=== PATIENT | female | born 1980 | race Caucasian/White ===

== ENCOUNTER 2023-04-08 08:49 | Outpatient (OUT) | payer OTHER, SELFPAY ==
[2023-04-08 09:21] LABS: Basophils Absolute Auto 0.1 10^3/uL (0.0-0.1); Eosinophils Absolute Auto 0.3 10^3/uL (0.0-0.7); Eosinophils Percent Auto 4.3 % (0.9-7.0); Hematocrit 39.9 % (36.0-48.0); Hemoglobin 13.6 g/dL (12.0-16.0); Immature Granulocytes Abs Auto 0.01 10^3/uL (0.00-0.03); Immature Granulocytes Pct Auto 0.1 % (0.0-0.5); Lymphocytes Absolute Auto 1.7 10^3/uL (1.2-3.8); Lymphocytes Percent Auto 24.2 % (20.5-60.0); Mean Corpuscular HGB Conc 34.1 g/dL (29.9-35.2); Mean Corpuscular Volume 90.9 fL (81.0-99.0); Mean Platelet Volume 9.4 fL (9.5-13.5); Monocytes Absolute Auto 0.4 10^3/uL (0.3-0.8); Monocytes Percent Auto 5.3 % (1.7-12.0); Neutrophils Absolute Auto 4.6 10^3/uL (1.4-6.5); Neutrophils Percent Auto 65.1 % (43.0-75.0); Platelet Count 255 10^3/uL (150-450); Red Blood Count 4.39 10^6/uL (4.20-5.40); Red Cell Distribution Width 12.8 % (11.0-15.0)
[2023-04-08 09:52] LABS: Alanine Aminotransferase 25 U/L (14-59); Albumin Globulin Ratio 1.4; Albumin Level 3.8 g/dL (3.4-5.0); Alkaline Phosphatase 46 U/L (46-116); Anion Gap 10.5; Aspartate Amino Transferase 15 U/L (15-37); BUN Creatinine Ratio 17.8; Bilirubin Total 0.7 mg/dL (0.2-1.0); Calcium 8.5 mg/dL (8.5-10.1); Chloride 105 mmol/L (98-107); Chol HDL Ratio 2.7; Cholesterol 182 mg/dL (<=200); Estimated GFR (African America >60 (>=60); Estimated GFR (Non-African Ame >60 (>=60); Globulin 2.8 g/dL; Glucose 85 mg/dL (74-106); HDL Cholesterol 67 mg/dL (40-60); Potassium 3.5 mmol/L (3.5-5.1); Sodium 137 mmol/L (136-145); Thyroid Stimulating Hormone 0.674 uIU/mL (0.358-3.740); Total Protein 6.6 g/dL (6.4-8.2); Triglycerides 65 mg/dL (<=150)
[2023-04-08 10:06] LABS: Free T4 1.03 ng/dL (0.76-1.46)
[2023-04-09 06:09] LABS: FSH 8.8 mIU/mL (.); Luteinizing Hormone(LH) 6.6 mIU/mL (.); Progesterone 0.1 ng/mL (.)
[2023-04-11 16:09] LABS: Thyroglobulin Antibody <1.0 IU/mL (0.0-0.9); Thyroid Peroxidase (TPO) Ab 12 IU/mL (0-34)
[2023-04-14 00:07] LABS: Estrogens, Total 304 pg/mL (.)
[2023-04-16 20:07] LABS: Free Testosterone(Direct) 0.8 pg/mL (0.0-4.2); Testosterone 13 ng/dL (4-50)
== END 2023-04-08 08:50 | disposition home or self-care (01) ==
LOC: LAB 08:55
PROVIDERS: PCP Family Medicine; Visit Provider Family Medicine
DX: D50.9 Iron deficiency anemia, unspecified (principal); I27.20 Pulmonary hypertension, unspecified; E04.1 Nontoxic single thyroid nodule; E55.9 Vitamin D deficiency, unspecified; N92.6 Irregular menstruation, unspecified
CPT/HCPCS: 36415; 80053; 80061; 82306; 82670; 82672; 82728; 83001; 83002; 83540; 84144; 84402; 84403; 84439; 84443; 85025

== ENCOUNTER 2025-04-18 11:14 | Outpatient (OUT) | payer BC, SELFPAY ==
--- OUTSIDE RECORDS SUMMARY | 2025-04-18 11:21 | XMS_ITS | Encounter Summary ---
Author Organization [facility] Address [id number] [place] [address] Care Team Providers Care Head Sulfide Operator Name Role Phone DarleneAaron Primary Care Provider [phone] [phone] Encounter Details Date Type Department Care Team (Late st Contact Info) Description 12/31/2021 Orders Only [facility] [address] [phone] External, Scanning Provider Social History Tobacco Use Types Packs/Day Years Used Date Smoking Tobacco: Never Smokeless Tobacco: Never Alcohol Use Standard Drinks/Week Comments No 0 (1 standard drink = 0.6 oz pur e alcohol) Childcare Answer Date Recorded Childcare Unknown 01/03/2019 Employment Answer Date Recorded Employment Unknown 01/03/2019 Purpose - Life Answer Date Recorded Purpose and direction in life Unknown Comments No Sex and Gender Information Value Date Recorded Sex Assigned at Not on file Legal Sex Female 11:28 AM EDT Gender Identity Not on file Sexual Orientation Not on file COVID-19 Exposure Response Date Recorded In the last 10 days, have yo u been in contact with someone who was confirmed or suspected to have Coronavirus/COVID-19? No / Unsure 12/15/2021 1:12 PM EDT documented as of this encounter Plan of Treatment Not on file documented as of this encounter Procedures Procedure Name Priority Date/Time Associated Diagnosis Comments MULTIPLE LABS Routine 10/05/2021 documented in this encounter Results * Multiple labs (10/05/2021) us Scanning Provider External [facility] Final Result MANUALLY TRANSCRIBED RESULTS documented in this encounter Visit Diagnoses Not on filedocumented in this encounter Care Teams Head Sulfide Operator Relationship Specialty Start Date End Date Aaron Colon DO [address] [place] [address] PCP - General Family Medicine 09/03/24 documented as of this encounter
--- OUTSIDE RECORDS SUMMARY | 2025-04-18 11:21 | XMS_ITS | Encounter Summary ---
Author Organization [facility] Address [id number] [place] [address] Care Team Providers Care Environmental Marketer Name Role Phone Aaron Colon DO Primary Care Provider Encounter Details Date Type Department Care Team (Late st Contact Info) Description 09/14/2023 Orders Only [facility] [address] [place] [phone] External, Scanning Provider Social History Tobacco Use [...] on file Sexual Orientation Not on file documented as of this encounter Plan of Treatment Not on file documented as of this encounter Procedures Procedure Name Priority Date/Time Associated Diagnosis Comments MULTIPLE LABS Routine 04/28/2023 3:50 PM EDT documented in this encounter Results * Multiple labs (04/28/2023 3:50 PM EDT) us Scanning Provider External [facility] Final Result MANUALLY TRANSCRIBED RESULTS documented in this encounter Visit Diagnoses Not on filedocumented in this encounter Care Teams Environmental Marketer Relationship Specialty Start Date End Date Aaron Colon DO [address] [place] [address] PCP - General Family Medicine 09/03/24 documented as of this encounter
--- OUTSIDE RECORDS SUMMARY | 2025-04-18 11:21 | XMS_ITS | Encounter Summary ---
Author Organization [facility] Address [address] [place] [address] Care Team Providers Care Manager Of Corporate Name Role Phone Aaron Colon DO Primary Care Provider [phone] [phone] Source Comments In the event this information is protected by the Federal Confidentiality of Alcohol and Drug AbusePatient Records regulations: The Federal rules restrict any use of the information to criminally investigate or prosecute any alcohol or drug abuse patient.[facility] Encounter Details Date Type Department Care Team (Late st Contact Info) Description 10/20/2022 Get Medical Advice Endocrine Surgery [address] [phone] Maryann Blackman MD [address] [place] [address] TSH Social History Tobacco Use Types Packs/Day Years Used Date Smoking Tobacco: Never Smokeless Tobacco: Never Alcohol Use Standard Drinks/Week Comments No 0 (1 standard drink = 0.6 oz pur e alcohol) Area Deprivation Index Answer Date David rded National Score (1-100), lower number is lower ri sk 63 08/21/2022 State Score (1-10), lower number is lower risk N ot on file 08/21/2022 Data from: https://www.neighborhoodatlas.medicine.[facility]/. Last address used for calculation [address] [place] [address] [address] 08/21/2022 Comments No Sex and Gender Information Value Date Recorded Sex Assigned at Female 06/28/2019 8:01 PM EST Legal Sex Female 4:56 PM EDT Gender Identity Female 06/28/2019 8:01 PM EST Sexual Orientation Straight 06/28/2019 8: 01 PM EST documented as of this encounter Plan of Treatment Not on file documented as of this encounter Visit Diagnoses Not on filedocumented in this encounter Care Teams Manager Of Corporate Relationship Specialty Start Date End Date Aaron Colon DO [address] [place] [address] PCP - General Family Medicine 10/18/22 documented as of this encounter
--- OUTSIDE RECORDS SUMMARY | 2025-04-18 11:21 | XMS_ITS | Encounter Summary ---
Author Organization [facility] [employer] [facility] Address [id number] [place] [address] Care Team Providers Care Coin Purse Framer Name Role Phone Aaron Colon DO Primary Care Provider [phone] [phone] Encounter Details Date Type Department Care Team (Late st Contact Info) Description 10/12/2022 Orders Only [facility] [address] [facility] [address] [place] [phone] External, Scanning Provider Social History Tobacco Use [...] Procedure Name Priority Date/Time Associated Diagnosis Comments ECHO COMPLETE WO CONTRAST Routine 10/07/2022 documented in this encounter Results * Echo complete W/O contrast (10/07/2022) Anatomical Region Laterality Modality Chest N/A Ultrasound us Scanning Provider External CV ECHO ORDERABLES Fi nal Result documented in this encounter Visit Diagnoses Not on filedocumented in this encounter Care Teams Coin Purse Framer Relationship Specialty Start Date End Date Aaron Colon DO [address] [place] [address] PCP - General Family Medicine 09/03/24 documented as of this encounter
--- OUTSIDE RECORDS SUMMARY | 2025-04-18 11:21 | XMS_ITS | Encounter Summary ---
Author Organization [facility] Address [address] [place] [address] Care Team Providers Care Seal Extrusion Operator Name Role Phone Aaron Colon DO Primary Care Provider [phone] [phone] Source Comments In the event this information is protected by the Federal Confidentiality of Alcohol and Drug AbusePatient Records regulations: The Federal rules restrict any use of the information to criminally investigate or prosecute any alcohol or drug abuse patient.[facility] Encounter Details Date Type Department Care Team (Latest Contact Info) Description 05/06/2023 Get Medical Advice Endocrine Surgery [address] [id number] Maryann Blackman MD [address] [place] [address] Measurements of last Echo Social History Tobacco Use Types Packs/Day Years [...] N ot on file 08/21/2022 Data from: https://www.neighborhoodatlas.[facility]/. Last address used for calculation [address] [place] [address] [address] 08/21/2022 Comments No Sex and [...] on filedocumented in this encounter Care Teams Seal Extrusion Operator Relationship Specialty Start Date End Date Aaron Colon DO [address] [place] [address] PCP - General Family Medicine 10/18/22 documented as of this encounter
--- OUTSIDE RECORDS SUMMARY | 2025-04-18 11:22 | XMS_ITS | Encounter Summary ---
Author Organization [facility] Address [address] [place] [address] Phone Care Team Providers Care Ecdis N Navigation Operator Name Role Phone Unavailable Primary Care Provider Unavailabl e Encounter Details Date Type Department Care Team (Late st Contact Info) Description 08/10/2024 Scanned Document [facility] [address] [place] [address] Scanning, Generic Provider Social History Tobacco Use Types Packs/Day Years Used Date Smoking Tobacco: Never Assessed Comments Unknown Sex and Gender Information Value Date Recorded Sex Assigned at Not on file Legal Sex Female 5:15 PM EST Gender Identity Not on file Sexual Orientation Not on file documented as of this encounter Plan of Treatment Not on file documented as of this encounter Procedures Procedure Name Priority Date/Time Associated Diagnosis Comments ECHOCARDIOGRAM 08/10/2024 documented in this encounter Results * Echocardiogram (08/10/2024) Narrative 08/10/2024 Ordered by an unspecified provider. us Generic Provider Scanning CV ECHO PROCEDURES Fin al Result documented in this encounter Visit Diagnoses Not on filedocumented in this encounter
--- OUTSIDE RECORDS SUMMARY | 2025-04-18 11:22 | XMS_ITS | Encounter Summary ---
Author Organization [facility] [email or web address] [facility] Address [id number] [place] [address] Care Team Providers Care Felt Strip Finisher Name Role Phone Aaron Colon DO Primary Care Provider [phone] [phone] Encounter Details Date Type Department Care Team (Late st Contact Info) Description 02/26/2025 Results Follow-Up [facility] [address] [phone] Mady Sprague RN Basic Metabolic Panel Social History Tobacco Use Types Packs/Day Years [...] on filedocumented in this encounter Care Teams Felt Strip Finisher Relationship Specialty Start Date End Date Aaron Colon DO [address] [place] [address] PCP - General Family Medicine 09/03/24 documented as of this encounter
--- OUTSIDE RECORDS SUMMARY | 2025-04-18 11:22 | XMS_ITS | Encounter Summary ---
Author Organization [facility] [employer] [facility] Address [id number] [address] [place] [address] Care Team Providers Care Business Intelligence Reporting Analyst Name Role Phone Aaron Colon Primary Care Provider [phone] [phone] Encounter Details Date Type Department Care Team (Late st Contact Info) Description 09/04/2024 Orders Only [facility] [address] [place] [address] External, Scanning Provider Social History Tobacco Use [...] Name Priority Date/Time Associated Diagnosis Comments ECHO DOPPLER Routine 08/10/2024 10:44 AM EST B-TYPE NATRIURETIC PEPTIDE Routine 08/10/2024 10:42 AM EST documented in this encounter Results * Echo Doppler (08/10/2024 10:44 AM EST) Anatomical Region Laterality Modality Chest N/A Ultrasound us Scanning Provider External CV ECHO ORDERABLES Fi nal Result * B-type natriuretic peptide (08/10/2024 10:42 AM EST) us Scanning Provider External LAB BLOOD ORDERABLES Final Result MANUALLY TRANSCRIBED RESULTS documented in this encounter Visit Diagnoses Not on filedocumented in this encounter Care Teams Business Intelligence Reporting Analyst Relationship Specialty Start Date End Date Aaron Colon DO [address] [place] [address] PCP - General Family Medicine 09/03/24 documented as of this encounter
--- OUTSIDE RECORDS SUMMARY | 2025-04-18 11:22 | XMS_ITS | Clinical Summary ---
Author Organization [facility] Address [address] [place] [address] Phone Care Team Providers Care Construction Safety Consultant Name Role Phone Unavailable Primary Care Provider Unavailabl e Social History Tobacco Use Types Packs/Day Years Used Date Smoking Tobacco: Never Assessed Comments Unknown Sex and Gender Information Value Date Recorded Sex Assigned at Not on file Legal Sex Female 5:15 PM EST Gender Identity Not on file Sexual Orientation Not on file Plan of Treatment Health Maintenance Due Date Last Done Comments CT Colonography 1980 Colonoscopy 1980 Colorectal Cancer Screening 1980 FIT-DNA (Cologuard) 1980 FIT 1980 HIV Screening 1980 Lipid Panel 1980 Sigmoidoscopy 1980 Yearly Adult Physical 1980 MMR Vaccines (1 of 1 - Stand pradeep series) 1981 Hepatitis C Screening 1998 Hepatitis B Vaccines (1 of 3 - 19+ 3-dose series) 1999 Pneumococcal Vaccine: Pediat rics and At-Risk Adult Patients (1 of 2 - PCV) 1999 Cervical Cancer Screening 2001 HPV/Cotest 2001 Pap Smear 2001 DTaP/Tdap/Td Vaccines (1 - Tdap) 2002 HPV Vaccines (1 - 3-dose sta ndard series) 2007 Mammogram 2020 COVID-19 Vaccine (1 - 2023-2 5 season) 2025 Influenza Vaccine (#1) 2025 Zoster Vaccines (1 of 2) 2030 HIB Vaccines Aged Out No longer eligi ble based on patient's age to complete this topic Hepatitis A Vaccines Aged Out No long er eligible based on patient's age to complete this topic IPV Vaccines Aged Out No longer eligi ble based on patient's age to complete this topic Meningococcal Vaccine Aged Out No karen new eligible based on patient's age to complete this topic Rotavirus Vaccines Aged Out No longer eligible based on patient's age to complete this topic Insurance
--- OUTSIDE RECORDS SUMMARY | 2025-04-18 11:22 | XMS_ITS | Encounter Summary ---
Author Organization [facility] Address [id number] [address] [place] [address] Care Team Providers Care Apparel Pattern Maker Name Role Phone Aaron Colon Primary Care Provider Encounter Details Date Type Department Care Team (Late st Contact Info) Description 06/10/2021 Orders Only [facility] [address] [place] [address] External, Scanning Provider Social History Tobacco Use Types Packs/Day Years Used Date Smoking Tobacco: Never Smokeless Tobacco: Never Alcohol Use Standard Drinks/Week Comments No 0 (1 standard drink = 0.6 oz pur e alcohol) Childcare Answer Date Recorded Childcare Unknown 01/03/2019 Employment Answer Date Recorded Employment Unknown 01/03/2019 Purpose - Life Answer Date Recorded Purpose and direction in life Unknown Comments Unknown Sex and Gender Information Value Date Recorded Sex Assigned at Not on file Legal Sex Female 11:28 AM EDT Gender Identity Not on file Sexual Orientation Not on file COVID-19 Exposure Response Date Recorded In the last month, have you been in contact with someone who was confirmed or suspected to have Coronavirus / COVID-19? No / Unsure 06/08/2021 2:03 PM EST documented as of this encounter Plan of Treatment Not on file documented as of this encounter Procedures Procedure Name Priority Date/Time Associated Diagnosis Comments ECHO COMPLETE WO CONTRAST Routine 07/23/2020 documented in this encounter Results * Echo complete W/O contrast (07/23/2020) Anatomical Region Laterality Modality Chest N/A Ultrasound us Scanning Provider External CV ECHO ORDERABLES Fi nal Result documented in this encounter Visit Diagnoses Not on filedocumented in this encounter Additional Health Concerns Infection Onset Date Last Indicated Resolved Time COVID-19 Rule-Out 06/30/2021 06/30/2021 07/01/2021 9:50 PM EST documented as of this encounter Care Teams Apparel Pattern Maker Relationship Specialty Start Date End Date Aaron Colon DO [address] [place] [address] PCP - General Family Medicine 09/03/24 documented as of this encounter
--- OUTSIDE RECORDS SUMMARY | 2025-04-18 11:22 | XMS_ITS | Encounter Summary ---
Author Organization [facility] Address [id number] [place] [address] Care Team Providers Care Patient Accounts Clerk Name Role Phone Aaron Colon Primary Care Provider Encounter Details Date Type Department Care Team (Late st Contact Info) Description 06/09/2021 Orders Only [facility] [address] [place] [phone] External, Scanning Provider Social History Tobacco Use [...] Date/Time Associated Diagnosis Comments ECHO DOPPLER Routine 07/23/2020 H-CARDIAC CATHETERIZATION Routine 05/02/2013 documented in this encounter Results * Echo Doppler (07/23/2020) Anatomical Region Laterality Modality Chest N/A Ultrasound us Scanning Provider External CV ECHO ORDERABLES Fi nal Result * Cardiac catheterization (05/02/2013) Anatomical Region Laterality Modality Other us Scanning Provider External CV CARDIAC CATH ORDER DANYELLE Final Result documented in this encounter Visit Diagnoses Not on filedocumented in this encounter Additional Health Concerns Infection Onset Date Last Indicated Resolved Time COVID-19 Rule-Out 06/30/2021 06/30/2021 07/01/2021 9:50 PM EST documented as of this encounter Care Teams Patient Accounts Clerk Relationship Specialty Start Date End Date Aaron Colon DO [address] [place] [address] PCP - General Family Medicine 09/03/24 documented as of this encounter
--- OUTSIDE RECORDS SUMMARY | 2025-04-18 11:22 | XMS_ITS | Clinical Summary ---
Author Organization [facility] Address [address] [place] [address] Care Team Providers Care Fur Ironer Name Role Phone Aaron Colon DO Primary Care Provider [phone] [phone] Allergies No known active allergies Medications ORENITRAM 5 mg TbER Take 10 mg by mouth three times daily. 06/22/2019 Active ADEMPAS 2.5 mg tablet Take 2.5 mg by mouth three times daily. 06/07/2019 Active bumetanide (BUMEX) 0.5 mg tablet 07/03/2021 Active Active Problems No known active problems Family History Medical History Relation Comments Peripheral vascular disease Father Relation Status Comments Father Social History Tobacco Use Types Packs/Day Years Used Date Smoking Tobacco: Never Smokeless Tobacco: Never Tobacco Cessation:Counseling Given: Not Answered Alcohol Use Standard Drinks/Week Comments No 0 (1 standard drink = 0.6 oz pur e alcohol) Area Deprivation Index Answer Date David rded National Score (1-100), lower number is lower ri sk 64 06/03/2023 State Score (1-10), lower number is lower risk 4 06/03/2023 Data from: https://www.neighborhoodatlas.medicine.[facility].edu/. Last address used for calculation [address] [place] [address] [address] 06/03/2023 Comments No Sex and Gender Information Value Date Recorded Sex Assigned at Female 06/28/2019 8:01 PM EST Legal Sex Female 4:56 PM EDT Gender Identity Female 06/28/2019 8:01 PM EST Sexual Orientation Straight 06/28/2019 8: 01 PM EST Last Filed Vital Signs Vital Sign Reading Time Taken Comments Blood Pressure 130/79 10/18/2022 2:56 PM EDT Pulse 73 10/18/2022 2:56 PM EDT Temperature 37.2 C (98.9 F) 06/14/2014 3:50 PM EST Respiratory Rate 18 06/14/2014 3:50 PM EST Oxygen Saturation 100% 06/14/2014 3:50 PM EST Inhaled Oxygen Concentration - - Weight 78 kg (172 lb) 10/18/2022 2:56 PM EDT Height 173.7 cm (5' 8.39 ) 10/01/2019 12:33 PM E DT Body Mass Index 25.86 10/01/2019 12:33 PM EDT Plan of Treatment Health Maintenance Due Date Last Done Comments Anxiety Screening 1998 Depression Screening 1998 HIV Screening 1998 Hepatitis C Screening 1998 DTaP,Tdap,Td Vaccine (1 - Tdap) 1999 Hepatitis B Vaccine (1 of 3 - 19+ 3-dose series) 1999 Cervical Cancer Screening 2001 HPV Vaccine (1 - 3-dose SCDM series) 2007 Mammogram Screening [address]enza Vaccine (#1) 2025 CT Colonography 2025 Cologuard (FIT-DNA) 2025 Colonoscopy 2025 Colorectal Cancer Screening 2025 Diabetes Screening 2025 07/14/2021, 1 08/27/2020, 06/14/2014 Fecal Occult Blood 2025 Lipid Screening 2025 Sigmoidoscopy 2025 Procedures Procedure Name Priority Date/Time Associated Diagnosis Comments COMPREHENSIVE METABOLIC PANEL Routine 06/14/2014 12:34 PM EST Primary pulmonary hypertension (HCC) from Last 3 Months or Most Recently Relevant to Health Maintenance Results * (ABNORMAL) COMP METABOLIC PANEL (06/14/2014 12:34 PM EST) Protein, Total 6.7 6.0 - 8.4 g/dL [facility] Albumin 4.2 3.5 - 5.0 g/dL [facility] Calcium 9.1 8.5 - 10.5 mg/dL [facility] Bilirubin, Total 0.4 0.0 - 1.5 mg/dL [facility] Alkaline Phosphatase 34(L) 40 - 150 U/L [facility] AST 25 7 - 40 U/L [facility] Glucose 87 65 - 100 mg/dL [facility] BUN 13 8 - 25 mg/dL [facility] Creatinine 0.90 0.70 - 1.40 mg/dL [facility] Sodium 137 132 - 148 mmol/L [facility] Comment:Corrected on 06/14 A T 2043: Previously reported as 130 Potassium 3.9 3.5 - 5.0 mmol/L [facility] Chloride 98 98 - 110 mmol/L [facility] CO2 21(L) 23 - 32 mmol/L [facility] Anion Gap 18(H) 0 - 15 mmol/L [facility] Comment:Corrected on 06/14 A T 2042: Previously reported as 11 ALT 16 0 - 45 U/L [facility] eGFR- >60 [facility] eGFR-All Other Races >60 . [facility] Comment: eGFR (Estimated GFR) Units of measure: mL/min/1.73 meters squared eGFR is derived from the reexpressed MDRD Study equation using the following parameters: serum creatinine, age, gender and race. The creatinine assay has been calibrated to be traceable to IDMS. An eGFR <60 mL/min/1.73m2 for >3 months is consistent with chronic kidney disease. Refer to KDOQI guidelines for clinical interpretation. In patients with unstable renal function, e.g. those with acute kidney injury, the eGFR may not accurately reflect actual GFR. Blood specimen (specimen) BLOOD SPECIMEN / Unknown 06/14/2014 12:34 PM EST 06/14/2014 12:36 PM EST us Deepti Gallo APRN.[employer] [facility] Edited [facility] [address] [place] [address] from Last 3 Months or Most Recently Relevant to Health Maintenance Insurance [address] [place] [address] [facility] Care Teams Fur Ironer Relationship Specialty Start Date End Date Aaron Colon DO [address] [place] [address] PCP - General Family Medicine 10/18/22
--- OUTSIDE RECORDS SUMMARY | 2025-04-18 11:22 | XMS_ITS | Continuity of Care Document ---
Author [facility] Address [address] [place] [address] Problems Unknown Problems Results Test Result Date/Time Value / Unit Interp. Refere nce Range SARS-CoV-2 (COVID-19), RT-PC R/TMA[[id number]] Collected: 06/30/2021 03:07 PM Specimen Received: 07/01/2021 07:42 PM Source: [facility] SARS-CoV-2 INTERPRETATION [[id number]] 07/02/2021 03:56 AM Negative See Note SARS-CoV-2 RNA NOT DETECTEDN egative results do not preclude SARS-CoV-2 infection and should notbe used as the sole basis for patient management decisions. Negativeresults must be combined with clinical observations, patient history,and epidemiological information. Optimum specimen types and timingfor peak viral levels during infections caused by SARS-CoV-2 have notbeen determined. Collection of multiple specimens or types ofspecimens may be necessary to detect virus. Improper specimencollection and handling, sequence variability under primers/probes,or organism present below the limit of detection may lead to falsenegative results. Positive and negative predictive values oftesting are highly dependent on prevalence. False negative testresults are more likely when prevalence is high. SOURCE [[id number]] 07/02/2021 03:56 AM NASOPHARYNGEAL Note: Methodology is Dorothy C yasmine Real-Time RT-PCR. The expected result or reference range is NEGATIVE (Not Detected). For more information regarding COVID-19 testing to include clinicalinformation, methodology detail, intended use, FDA authorization andrecommended fact sheets for patients or healthcare providers, see [employer]Loop Announcement: SARS-CoV-2 (COVID-19) by NAAT at URL below (note,fact sheets are provided by method given in report:[email or web address]/ Alternatively, see downloadable PDF fact sheet at:[email or web address] Allergies, adverse reactions, alerts No known allergies and adverse reactions Medications No administered medications reported Vital Signs No vital signs reported Social History No smoking Hx information available
--- OUTSIDE RECORDS SUMMARY | 2025-04-18 11:22 | XMS_ITS | Encounter Summary ---
Author Organization [facility] Address [address] [place] [address] Care Team Providers Care Cs Associate Name Role Phone Caitlin Delcid MD Primary Care Provider [phone] Aaron Colon DO Primary Care Provider [phone] Source Comments In the event this information is protected by the Federal Confidentiality of Alcohol and Drug AbusePatient Records regulations: The Federal rules restrict any use of the information to criminally investigate or prosecute any alcohol or drug abuse patient.[facility] Encounter Details Date Type Department Care Team (Late st Contact Info) Description 09/07/2019 Patient Msg Endocrine Surgery [address] [place] [address] Provider, [facility] Assessment Social History Tobacco Use Types Packs/Day Years Used Date Smoking Tobacco: Never Alcohol Use Standard Drinks/Week Comments No 0 (1 standard drink = 0.6 oz pur e alcohol) Comments Unknown Sex and Gender Information Value [...] on filedocumented in this encounter Care Teams Cs Associate Relationship Specialty Start Date End Date Caitlin Delcid MD [address] [place] [address] PCP - General Family Medicine 04/29/14 06/03/22 Aaron Colon DO [address] [place] [address] PCP - General Family Medicine 10/18/22 documented as of this encounter
--- OUTSIDE RECORDS SUMMARY | 2025-04-18 11:22 | XMS_ITS | Clinical Summary ---
Author Organization [employer] [facility] [employer] Address [id number] [address] [place] [address] Care Team Providers Care Machine Bender Name Role Phone DarleneAaron Primary Care Provider Allergies No known active allergies Medications treprostinil diolamine 2.5 mg tablet extended releaseIndicatio ns:pulmonary arterial hypertension Take 10 mg by mouth 3 (three) times a day Indications: Pulmonary Hypertensive Arterial Disease. Active riociguat (ADEMPAS) 2.5 mg tablet tablet Take 1 tablet (2.5 mg total) by mouth 3 (three) times a day. Active bumetanide (BUMEX) 0.5 mg tabletIndication s:Chronic diastolic heart failure ([facility]),Pulmon pavithra arterial hypertension ([facility]) Take 1 tablet (0.5 mg total) by mouth as needed (Daily as needed for weight gain 2lb overnight or 5lb in 1 week). Active Active Problems Problem Noted Date Diagnosed Date Pulmonary arterial hypertension 06/16/2016 CAP (community acquired pneumonia) 06/16/2016 Oral thrush 06/16/2016 Acute on chronic respiratory failure with hypoxi a 06/16/2016 Resolved Problems Problem Noted Date Diagnosed Date Resolved Date Hypoxemia 06/16/2016 06/16/2016 Respiratory failure, [id number] 06/15/2016 06/16/2016 Encounters Date Type Department Care Team Description 02/26/2025 Results Follow-Up [facility] [address] [place] [address] Mady Sprague, RN Basic Metabolic Panel 02/25/2025 Travel from Last 3 Months Family History Medical History Relation Name Comments Hyperlipidemia Father Heart disease Maternal Grandfather Diabetes Mother Hypertension Paternal Grandmother Relation Name Status Comments Father Maternal Grandfather Mother Paternal Grandmother Social History Tobacco Use Types Packs/Day Years [...] on file Sexual Orientation Not on file Last Filed Vital Signs Vital Sign Reading Time Taken Comments Blood Pressure 124/82 09/03/2024 2:54 PM EST Pulse 67 09/03/2024 2:54 PM EST Temperature 36.9 C (98.4 F) 06/18/2016 12:30 PM EST Respiratory Rate 15 07/03/2021 10:3 0 AM EST Oxygen Saturation 100% 09/03/2024 2:54 PM EST Inhaled Oxygen Concentration - - Weight 77.5 kg (170 lb 12.8 oz) 09/03/2024 2:54 PM EST Height 170.2 cm (5' 7.01 ) 09/03/2024 2:54 PM ES T Body Mass Index 26.74 09/03/2024 2:54 PM EST Plan of Treatment Health Maintenance Due Date Last Done Comments Depression Screening 1992 Adult BMI Follow Up Plan 1998 DTaP,Tdap and Td Vaccines (1 - Tdap) 1999 Pap Smear 2001 Influenza Vaccine 03/25/2025 Adult BMI Screening 09/03/2025 09/03/2024 Tobacco Screening 09/03/2025 09/03/2024 Medical Devices Not on file Procedures Procedure Name Priority Date/Time Associated Diagnosis Comments SEROTONIN SERUM Routine 02/25/2025 12:11 PM EDT Irregular menstruation, unspecified FERRITIN Routine 02/25/2025 12:11 PM EDT Irregular menstruation, unspecified THYROID PEROXIDASE ANTIBODY Routine 02/25/2025 12:11 PM EDT Irregular menstruation, unspecified THYROGLOBULIN, S/P Routine 02/25/2025 12 :11 PM EDT Irregular menstruation, unspecified THYROGLOBULIN ANTIBODY Routine 12:11 PM EDT Irregular menstruation, unspecified THYROID PROFILE INCLUDES TSH FT4 Routine 02/25/2025 12:11 PM EDT Irregular menstruation, unspecified T3 REVERSE, S Routine 02/25/2025 12:11 PM EDT Irregular menstruation, unspecified T3, FREE Routine 02/25/2025 12:11 PM EDT Irregular menstruation, unspecified T3 TOTAL Routine 02/25/2025 12:11 PM EDT Irregular menstruation, unspecified BASIC METABOLIC PANEL Routine 02/25/2025 12:11 PM EDT Chronic diastolic heart failure (CMS-HCC) EXTRA TUBES PST TOP Routine 02/25/2025 1 2:07 PM EDT Irregular menstruation, unspecified Chronic diastolic heart failure (CMS-HCC) EXTRA TUBES Routine 02/25/2025 12:07 PM EDT Irregular menstruation, unspecified Chronic diastolic heart failure (CMS-HCC) from Last 3 Months Results * (ABNORMAL) T3 Reverse, S (02/25/2025 12:11 PM EDT) T3(TRIIODOTHYRONINE ), REVERSE, S 25(H) 10 - 24 ng/dL 02/28/2025 1:43 PM EDT [facility] [employer] Comment: ADDITIONAL INFORMATION This test was developed and its performance characteristics determined by [facility] in a manner consistent with CLIA requirements. This test has not been cleared or approved by the U.S. Food and Drug Administration. Test Performed by: [facility] [address] [place] [address] Bakery Supervisor: Donovan Barnard Ph.D.; CLIA# [id number] Blood Venous blood / Unknown Venipuncture / Unknown 02/25/2025 12:11 PM EDT 02/25/2025 12:11 PM EDT us Aaron Colon DO LAB ORDERABLES Final Result Performing Organization Address City/[facility]/ZIP Co de Phone Number [facility] [address] [place] [address], [place] * (ABNORMAL) T3 Total (02/25/2025 12:11 PM EDT) TOTAL T3 (TT3) 80(L) 87 - 178 ng/dL 02/25/2025 7:31 PM EDT [facility] Blood Venous blood / Unknown Venipuncture / Unknown 02/25/2025 12:11 PM EDT 02/25/2025 12:11 PM EDT us Aaron Colon DO LAB BLOOD ORDERABLES Final R esult [facility] [address] [place] [address], [place] [phone] * Thyroglobulin Ab (02/25/2025 12:11 PM EDT) THYROGLOBULIN AB <1 <4 IU/mL 02/26/20 7:44 PM EDT [facility] Blood Venous blood / Unknown Venipuncture / Unknown 02/25/2025 12:11 PM EDT 02/25/2025 12:11 PM EDT us Aaron E Boutte DO LAB BLOOD ORDERABLES Final R esult [facility] [address] [place] [address], [place] [phone] * Thyroid profile includes TSH FT4 (02/25/2025 12:11 PM EDT) FREE T4 1.25 0.61 - 1.60 ng/dL 02/25/2025 7:25 PM EDT [facility] TSH 1.20 0.49 - 4.67 uIU/mL 02/25/2025 7:25 PM EDT [facility] Blood Venous blood / Unknown Venipuncture / Unknown 02/25/2025 12:11 PM EDT 02/25/2025 12:11 PM EDT us Menominee E Boutte DO LAB BLOOD ORDERABLES Final R esult [facility] [address] [place] [address], [place] [phone] * Thyroid peroxidase antibody (02/25/2025 12:11 PM EDT) Pathologist [facility] THYROPEROXIDASE AB 4 <10 IU/mL 2024 7:44 PM EDT [facility] Blood Venous blood / Unknown Venipuncture / Unknown 02/25/2025 12:11 PM EDT 02/25/2025 12:11 PM EDT us Aaron E Boutte DO LAB BLOOD ORDERABLES Final R esult [facility] [address] [place] [address], [place] [phone] * Thyroglobulin, S/P (02/25/2025 12:11 PM EDT) THYROGLOBULIN 9.7 1.3 - 31.8 ng/mL 02/28/2025 6:49 PM EDT [employer] Comment: Results obtained with different test methods or kits cannot be used interchangeably. Thyroglobulin results, regardless of concentration, should not be interpreted as absolute evidence for the presence or absence of papillary or follicular thyroid cancer. Thyroglobulin testing is not recommended for use as a screening procedure to detect the presence of thyroid cancer in the general population. INTERPRETIVE INFORMATION: Thyroglobulin by LC-MS/MS, Serum/Plasma Lower limit of detection for Thyroglobulin by LC-MS/MS is 0.5 ng/mL. This test was developed and its performance characteristics determined by [facility]. It has not been cleared or approved by the [place] Food and Drug Administration. This test was performed in a CLIA certified laboratory and is intended for clinical purposes. Performed By: [facility] [address] [place] [address] Assembler Watch Train: Dwight Mooney MD, PhD CLIA Number: [id number] Blood Venous blood / Unknown Venipuncture / Unknown 02/25/2025 12:11 PM EDT 02/25/2025 12:11 PM EDT us Aaron Colon DO LAB BLOOD [facility]AB[facility] Performing Organization Address City/[facility]/ZIP Co de Phone Number [employer] [address] [place] [address], * T3, free (02/25/2025 12:11 PM EDT) FREE T3 2.72 2.50 - 3.90 pg/mL 02/25/2025 7:26 PM EDT [facility] Blood Venous blood / Unknown Venipuncture / Unknown 02/25/2025 12:11 PM EDT 02/25/2025 12:11 PM EDT us Aaron E Boutte DO LAB BLOOD ORDERABLES Final R esult [facility] [address] [place] [address], [place] [phone] * Serotonin serum (02/25/2025 12:11 PM EDT) Pathologist [facility] SEROTONIN 79 50 - 220 ng/mL 03/01/2025 11:07 AM EDT [facility] Comment: TEST INFORMATION: Serotonin, Serum This test was developed and its performance characteristics determined by [facility]. It has not been cleared or approved by the [place] Food and Drug Administration. This test was performed in a CLIA certified laboratory and is intended for clinical purposes. Performed By: [facility] [address] [place] [address] As[employer] Watch Train: Dwight Mooney MD, PhD CLIA Number: [id number] Blood Venous blood / Unknown Venipuncture / Unknown 02/25/2025 12:11 PM EDT 02/25/2025 12:11 PM EDT us Aaron Colon DO LAB BLOOD ORDERABLES Final R esult Performing Organization Address City/[facility]/ZIP Co de Phone Number [address] [address], [place] * Ferritin (02/25/2025 12:11 PM EDT) Pathologist [facility] FERRITIN 28 11 - 307 ng/mL 02/25/2025 7:31 PM EDT [facility] Blood Venous blood / Unknown Venipuncture / Unknown 02/25/2025 12:11 PM EDT 02/25/2025 12:11 PM EDT us Menominee E Darlene DO LAB BLOOD ORDERABLES Final R esult [facility] [address] [place] [address], [place] [phone] * (ABNORMAL) Basic Metabolic Panel (02/25/2025 12:11 PM EDT) [facility] SODIUM 139 134 - 146 mmol/L 02/25/2025 7:16 PM EDT [facility] POTASSIUM 4.7 3.5 - 5.0 mmol/L 02/25/2025 7:16 PM EDT [facility] CHLORIDE 107 98 - 109 mmol/L 02/25/2025 7:16 PM EDT [facility] CARBON DIOXIDE 25 22 - 32 mmol/L 02/25/2025 7:16 PM EDT [facility] ANION GAP 7 5 - 15 mmol/L 02/25/2025 7:16 PM EDT [facility] BLOOD UREA NITROGEN 16 5 - 23 mg/dL 02/25/2025 7:16 PM EDT [facility] CREATININE 1.01(H) 0.40 - 1.00 mg/dL 02/25/2025 7:16 PM EDT [facility] Comment:METHOD TRACEABLE TO IDMS STANDARD GLUCOSE 84 65 - 99 mg/dL 02/25/2025 7:16 PM EDT [facility] CALCIUM 8.8 8.5 - 10.5 mg/dL 02/25/2025 7:16 PM EDT [facility] EGFR Non-Race Dependent 70 >=60 ml/min/1.7 3sq.m 02/25/2025 7:16 PM EDT [facility] Comment: Reported eGFR is based on the CKD-EPI 2020 equation that does not use a race coefficient. Blood Venous blood / Unknown Venipuncture / Unknown 02/25/2025 12:11 PM EDT 02/25/2025 12:11 PM EDT us Ruth Muniz MD LAB BLOOD ORDERABLES Final Resu lt [facility] [address] [place] [address], [place] [phone] * PST TOP (02/25/2025 12:07 PM EDT) Extra Tube Auto Resulted 02/25/2025 2:01 PM EDT [facility] Blood Venous blood / Unknown 02/25/2025 12:07 PM EDT 02/25/2025 12:11 PM EDT us Ruth Muniz MD LAB BLOOD ORDERABLES Final Resu lt [facility] [address] [place] [address], [place] from Last 3 Months Insurance [facility] Advance Directives * Full Code (Latest Code Status on File) Date Activated Date Inactivated Comments 06/17/2016 9:26 AM 06/18/2016 7:47 PM Care Teams Machine Bender Relationship Specialty Start Date End Date Aaron Colon DO [address] [place] [address] PCP - General Family Medicine 09/03/24
--- OUTSIDE RECORDS SUMMARY | 2025-04-18 11:22 | XMS_ITS | Clinical Summary ---
Author Organization [facility] Address [address] [place] [address] Care Team Providers Care Histotechnician Name Role Phone Aaron Colon MD Primary Care Provider [phone] Allergies No known active allergies Medications bumetanide (Bumex) 0.5 MG tablet Take 0.5 mg by mouth every other day 09/03/2024 Active Riociguat 2.5 MG tablet Take 2.5 mg by mouth in the morning and 2.5 mg at noon and 2.5 mg in the evening. Active Treprostinil Diolamine ER (Orenitram) 5 MG tablet controlled-rele ase every 8 (eight) hours Active VITAMIN D PO 1 (one) time each day at the same time Active Ascorbic Acid (vitamin C) 1000 MG tablet 1 (one) time each day at the same time Active Active Problems Problem Noted Date Diagnosed Date Thyroid nodule 09/25/2024 Vitamin D deficiency 09/25/2024 Immunizations Immunization Administration Dates Next Due Pneumococcal Conjugate, Unspecified 12/27/2017 Family History Medical History Relation Name Comments Hyperlipidemia Father Mihir Hypertension Father Mihir Sleep apnea Father Mihir Hypertension Mother Kathleen prediabetes Mother Kathleen Relation Name Status Comments Father Mihir Alive Mother Kathleen Alive Social History Tobacco Use Types Packs/Day Years Used Date Smoking Tobacco: Never Smokeless Tobacco: Never Tobacco Cessation:Counseling Given: Not Answered Alcohol Use Standard Drinks/Week Comments Never 0 (1 standard drink = 0.6 oz pur e alcohol) AUDIT-C Answer Date Recorded Q1: How often do you have a drink containing alcohol? Never 09/25/2024 Q2: How many drinks containi ng alcohol do you have on a typical day when you are drinking? Patient does not drink Q3: How often do you have si x or more drinks on one occasion? Never 09/25/2024 PHQ-2 Answer Date Recorded Patient Health Questionnaire-2 Score 0 09/25/2024 Comments No Sex and Gender Information Value Date Recorded Sex Assigned at Not on file Legal Sex Female 7:21 PM EDT Gender Identity Not on file Sexual Orientation Not on file Last Filed Vital Signs Vital Sign Reading Time Taken Comments Blood Pressure 102/66 09/25/2024 10:15 AM EST Pulse - - Temperature - - Respiratory Rate - - Oxygen Saturation - - Inhaled Oxygen Concentration - - Weight 77.1 kg (170 lb) 09/25/2024 10:15 AM EST Height 171.5 cm (5' 7.5 ) 09/25/2024 10:15 AM ES T Body Mass Index 26.23 09/25/2024 10:15 AM EST Plan of Treatment Not on file Insurance [employer] Care Teams Histotechnician Relationship Specialty Start Date End Date Araon Colon MD [address] [place] [address] PCP - General Family Medicine 09/25/24
--- OUTSIDE RECORDS SUMMARY | 2025-04-18 11:22 | XMS_ITS | Encounter Summary ---
Author Organization [facility] Address [id number] [place] [address] Care Team Providers Care Interpreter For The Deaf Name Role Phone Aaron Colon Primary Care Provider [phone] Encounter Details Date Type Department Care Team (Late st Contact Info) Description 06/11/2021 Orders Only [facility] [address] [place] [address] External, Scanning Provider Social History Tobacco Use [...] Diagnosis Comments ECHO COMPLETE WO CONTRAST Routine 06/28/2019 documented in this encounter Results * Echo complete W/O contrast (06/28/2019) Anatomical Region Laterality Modality Chest N/A Ultrasound us Scanning Provider External CV ECHO ORDERABLES Fi nal Result documented in this encounter Visit Diagnoses Not on filedocumented in this encounter Additional Health Concerns Infection Onset Date Last Indicated Resolved Time COVID-19 Rule-Out 06/30/2021 06/30/2021 07/01/2021 9:50 PM EST documented as of this encounter Care Teams Interpreter For The Deaf Relationship Specialty Start Date End Date Aaron Colon DO [address] [place] [address] PCP - General Family Medicine 09/03/24 documented as of this encounter
[2025-04-18 11:58] LABS: NT Pro B Type Natriuretic Pept 260.0 pg/mL (<=450.0)
== END 2025-04-18 11:15 | disposition home or self-care (01) ==
LOC: LAB 11:19
PROVIDERS: PCP Family Medicine
DX: I27.0 Primary pulmonary hypertension (principal)
CPT/HCPCS: 36415; 83880